=== PATIENT | male | born 1980 | race Caucasian/White ===

== ENCOUNTER 2016-10-12 11:48 | Outpatient (CLI) | payer BC | END 2016-10-12 11:49 | disposition home or self-care (01) | DX: M54.9 Dorsalgia, unspecified (principal) ==

== ENCOUNTER 2016-11-13 09:49 | Outpatient (CLI) | payer BC | END 2016-11-13 09:50 | disposition home or self-care (01) | DX: I10 Essential (primary) hypertension (principal) ==

== ENCOUNTER 2016-11-22 15:21 | Outpatient (CLI) | payer BC | END 2016-11-22 15:22 | disposition home or self-care (01) | DX: M51.26 Other intervertebral disc displacement, lumbar region (principal); M51.36 Other intervertebral disc degeneration, lumbar region; M47.816 Spondylosis without myelopathy or radiculopathy, lumbar region; M51.27 Other intervertebral disc displacement, lumbosacral region; M51.25 Other intervertebral disc displacement, thoracolumbar region ==

== ENCOUNTER 2018-09-10 13:23 | Emergency (ER) | payer OTHER, BC ==
[2018-09-10] MEDS ORDERED: KETOROLAC 60 MG/2 ML VIAL IM STA (13:50)
--- NOTE | 2018-09-10 13:55 | ED Physician Documentation ---
History of Present Illness - Stated complaint Stated Complaint: GLF/UPPER BACK/SHOULDER PX - Chief complaint Chief Complaint: Ext Problem - History obtained from History obtained from: Patient - History of Present Illness Timing: Today Pain level max: 7 Pain level now: 5 Improved by: rest Worsened by: movement - Additonal information Additional information: 37-year-old male tripped and fell landed on the right side of his body today. Slipped on the ice. This was at work. Better with rest and worse with movement. States has intermittent tingling to the pinky on the right hand. Took Tylenol without relief. Feels like it is tightening up over time. Very little pain initially. Review of Systems Constitutional: denies: Fever, Chills Ears: denies: Ear pain Nose: denies: Rhinorrhea / runny nose, Congestion Throat: denies: Sore throat Cardiac: denies: Chest pain / pressure Respiratory: denies: Cough GI: denies: Nausea, Vomiting, Diarrhea Skin: denies: Rash Neurologic: denies: Focal weakness, Headache, Head injury, LOC PD PAST MEDICAL HISTORY - Past Medical History Cardiovascular: None Respiratory: None GI: None Psych: None - Present Medications Home Medications: Ambulatory Orders Medication Instructions Recorded Confirmed Cyclobenzaprine [Flexeril] 10 mg PO TID PRN #20 tablet 09/10/18 Meloxicam [Mobic] 15 mg PO DAILY PRN #20 tablet 09/10/18 - Allergies Allergies/Adverse Reactions: Allergies Allergy/AdvReac Type Severity Reaction Status Date / Time No Known Drug Allergies Allergy Verified 09/10/18 13:29 PD ED PE NORMAL - Vitals Vital signs reviewed: Yes - General General: Alert and oriented X 3, No acute distress - HEENT HEENT: Moist mucous membranes - Neck Neck: Supple, no meningeal sign, No bony TTP (No midline tenderness to palpation or percussion.), Other (Paraspinal spasm, right upper thoracic/lower cervical area, no midline tenderness.) - Cardiac Cardiac: RRR, Strong equal pulses - Respiratory Respiratory: No respiratory distress, Clear bilaterally - Abdomen Abdomen: Soft, Non tender, Non distended - Back Back: No spinal TTP (No midline tenderness to palpation or percussion. No step- off or deformity) - Derm Derm: Warm and dry - Neuro Neuro: Alert and oriented X 3, game attendant 2-12 intact, No motor deficit, No sensory deficit Results - Vitals Vitals: Vital Signs - 24 hr 09/10/18 13:27 Temperature 36.3 C L Heart Rate 91 Respiratory 16 Rate Blood Pressure 143/107 H O2 Saturation 96 Oxygen O2 Source Room air PD MEDICAL DECISION MAKING - ED course Complexity details: considered differential, d/w patient ED course: 37-year-old male with what appears to be a right-sided paracervical and parathoracic spine strain. Appears muscular. No evidence of bony injury. No evidence of rib fractures or spine fractures. Given Toradol and feels improved. Will place on NSAIDs and muscle relaxants for home. Patient counseled regarding signs and symptoms for which I believe and urgent re-evaluation would be necessary. Patient with good understanding of and agreement to plan and is comfortable going home at this time This document was made in part using voice recognition software. While efforts are made to proofread this document, sound alike and grammatical errors may occur. No neurological deficits on exam. Departure - Departure Disposition: Home, Self Care Clinical Impression: Upper back strain Qualifiers: Encounter type: initial encounter Qualified Code(s): S29.012A - Strain of muscle and tendon of back wall of thorax, initial encounter Condition: Good Instructions: ED Neck Back Pain General Follow-Up: Edu Franklin MD [Primary Care Provider] - Within 1 week (if not better) Prescriptions: Cyclobenzaprine [Flexeril] 10 mg PO TID PRN #20 tablet PRN Reason: Spasms Meloxicam [Mobic] 15 mg PO DAILY PRN #20 tablet PRN Reason: pain Comments: Return if you worsen. This should improve over the next day or 2. Follow-up with your doctor for further evaluation and care. Do not drive or operate heavy [id number] taking the Flexeril as it may make you drowsy.
[2018-09-10 14:35] VITALS: BP 119/89
== END 2018-09-10 14:30 | disposition home or self-care (01) ==
LOC: ED 13:23
DX: S29.012A Strain of muscle and tendon of back wall of thorax, initial encounter (principal); W00.0XXA Fall on same level due to ice and snow, initial encounter; Y99.0 Civilian activity done for income or pay
CPT/HCPCS: 96372; 99283